=== PATIENT | female | born 1945 | race African-American/Black ===

== ENCOUNTER 2020-09-19 00:17 | Emergency (ER) | payer OTHER ==
[2020-09-19 01:00] VITALS: TEMP 98.9; BMI 33.0
[2020-09-19 01:32] LABS: BASO % 0.3 % (0-2.0); EOS % 3.4 % (0-4.5); HEMATOCRIT 25.6 % (32.4-45.2); HEMOGLOBIN 8.6 GM/dL (10.7-15.3); LYMPH % 12.5 % (8-40); MCH 29.5 pg (25.7-33.7); MCHC 33.7 g/dl (32.0-36.0); MEAN CELL VOLUME 87.7 fl (80-96); MEAN PLT VOLUME 8.8 fl (7.5-11.1); MONO % 10.5 % (3.8-10.2); NEUT % 73.3 % (42.8-82.8); PLATELET COUNT 156 K/MM3 (134-434); RBC 2.92 M/mm3 (3.60-5.2); WHITE BLOOD COUNT 10.6 K/mm3 (4.0-10.0)
[2020-09-19 01:42] LABS: CALCIUM 8.9 mg/dL (8.5-10.1)
[2020-09-19 01:43] LABS: ALBUMIN 2.2 g/dl (3.4-5.0); BLOOD UREA NITROGEN 58.7 mg/dL (7-18); MAGNESIUM 2.2 mg/dL (1.8-2.4)
[2020-09-19 01:46] LABS: CREATININE 3.3 mg/dL (0.55-1.3); PHOSPHOROUS 2.4 mg/dL (2.5-4.9)
[2020-09-19 01:47] LABS: BILIRUBIN,TOTAL 0.8 mg/dL (0.2-1); TOT PROT 6.5 g/dl (6.4-8.2)
[2020-09-19 01:49] LABS: INR 1.15 (0.83-1.09); PROTHROMBIN TIME (PATIENT) 14.1 SEC (9.7-13.0)
[2020-09-19 01:52] LABS: ACTIVATED PTT 19.9 SECONDS (25.2-36.5)
[2020-09-19] MEDS ORDERED: ESMOLOL 2500 MG/250 ML 2,500,000 MCG/250 ML INFUS.BAG IVPB ONE (08:05)
[2020-09-19] MEDS ORDERED: ESMOLOL 2500 MG/250 ML 2,500,000 MCG/250 ML INFUS.BAG IVPB SCH ×2 (08:15→08:16)
[2020-09-19 18:25] VITALS: BP 130/69; PULSE 78
== END 2020-09-19 20:01 | disposition short-term general hospital (02) ==
LOC: JER 00:17
DX: J95.01 Hemorrhage from tracheostomy stoma (principal)
CPT/HCPCS: 36415; 71045-TC-FY; 71250-TC; 71275-TC; 74174-TC; 80053; 83735; 84100; 85025; 85610; 85730; 86850; 86900; 86901; 93005; 93010; 99285-25; C9803; Q9967; U0003; U0005